=== PATIENT | female | born 1935 | race African-American/Black ===

== ENCOUNTER 2017-12-29 05:33 | Emergency (ER) | payer OTHER, BC ==
[~2017-12-29] VITALS: Ht 152.4 cm; Wt 83.6 kg
[2017-12-29 06:13] LABS: HEMATOCRIT 32.9 % (36.0-46.0); HEMOGLOBIN 10.7 G/DL (11.9-15.5); MCH 27.4 PG (29.0-34.0); MCHC 32.5 G/DL (30.0-36.0); MCV 84.1 FL (83-99); PLATELET COUNT 140 K/uL (156-360); RBC DIS.WIDTH-SD 43.1 % (39-53); RED BLOOD COUNT 3.91 M/uL (3.80-5.20); WHITE BLOOD COUNT 5.6 K/uL (4.1-10.2)
[2017-12-29 06:21] LABS: CHLORIDE 100 mEq/L (99-109); POTASSIUM 3.1 mEq/L (3.7-5.4); SODIUM 138 mEq/L (136-147)
[2017-12-29 06:24] LABS: GLUCOSE 111 mg/dL (70-99); TOTAL PROTEIN 8.5 g/dL (6.4-8.3)
[2017-12-29 06:26] LABS: TOTAL BILIRUBIN 0.7 mg/dL (0.0-1.0)
[2017-12-29 06:27] LABS: ALKALINE PHOSPHATASE 32 IU/L (3-129); CREATININE 3.3 mg/dL (0.6-1.3)
[2017-12-29 06:29] LABS: AST (GOT) 32 IU/L (2-34); UREA NITROGEN (BUN) 39 mg/dL (9-23)
[2017-12-29 06:30] LABS: ALT (GPT) 17 IU/L (3-49); GFR ESTIMATE (CALCULATED) 14 mL/min/
[2017-12-29 06:45] LABS: BASOPHIL (%) 0.4 % (0-1); EOSINOPHIL (%) 1.4 % (0-5); EOSINOPHIL COUNT 0.1 K/uL (0-0.3); IMMATURE GRANULOCYTE (%) 0.2 % (0.0-0.7); LYMPHOCYTE (%) 45.3 % (15-42); LYMPHOCYTE COUNT 2.5 K/uL (1.0-2.8); MONOCYTE (%) 9.3 % (3-12); MONOCYTE COUNT 0.5 K/uL (0-0.8); NEUTROPHIL (%) 43.4 % (45-76); NEUTROPHIL COUNT 2.4 K/uL (1.8-6.4)
[2017-12-29] MEDS ORDERED: TAMIFLU75 MG PO (07:17)
[2017-12-29 08:21] VITALS: BP 143/68
== END 2017-12-29 08:21 | disposition home or self-care (01) ==
LOC: EME 05:33
PROVIDERS: Emergency Medicine
DX: J10.2 Influenza due to other identified influenza virus with gastrointestinal manifestations (principal); J06.9 Acute upper respiratory infection, unspecified; D64.9 Anemia, unspecified; N19 Unspecified kidney failure
CPT/HCPCS: 71046; 80053; 85025; 87502; 99281; 99284